=== PATIENT | male | born 1995 | race Caucasian/White ===

== ENCOUNTER 2025-04-08 11:53 | Emergency (ER) | payer OTHER ==
[~2025-04-08] VITALS: Ht 180.3 cm; Wt 95.3 kg
[2025-04-08] MEDS ORDERED: LIDOCAINE HCL/EPINEPHRINE 50 ML VIAL ONE (13:04)
[2025-04-08] MEDS ORDERED: CEPHALEXIN500 M1 PO (13:08)
[2025-04-08] MEDS ORDERED: Bacitracin Zinc 14 GM TUBE T ONE (13:10)
[2025-04-08] MEDS ORDERED: Tdap Vaccine 0.5 ML SYR (Adult Vaccine) IM ONE (13:20)
== END 2025-04-08 13:33 | disposition home or self-care (01) ==
LOC: ED 11:53
DX: S01.81XA Laceration without foreign body of other part of head, initial encounter (principal); Z88.1 Allergy status to other antibiotic agents; Z88.8 Allergy status to other drugs, medicaments and biological substances; W18.31XA Fall on same level due to stepping on an object, initial encounter; Y93.89 Activity, other specified; Y92.89 Other specified places as the place of occurrence of the external cause; Y99.8 Other external cause status